=== PATIENT | female | born 1955 | race African-American/Black ===

== ENCOUNTER 2019-06-02 08:39 | Outpatient (CLI) | payer OTHER ==
[~2019-06-02] VITALS: Ht 157.5 cm; Wt 78.0 kg
[2019-06-02] MEDS ORDERED: COLE5PAC PO (09:04)
[2019-06-02] MEDS ORDERED: OXYC10TA PO (09:04)
[2019-06-02] MEDS ORDERED: SIMV40TA3 PO (09:04)
[2019-06-02] MEDS ORDERED: CARV25TA2 PO (09:04)
[2019-06-02] MEDS ORDERED: CHOL10003 PO (09:04)
[2019-06-02] MEDS ORDERED: VENL37.56 PO (09:04)
[2019-06-02] MEDS ORDERED: PANT40TA77 PO (09:04)
[2019-06-02] MEDS ORDERED: GABA300C18 PO ×2 (09:04)
[2019-06-02] MEDS ORDERED: ASPI325T8 PO (09:04)
[2019-06-02] MEDS ORDERED: CLOP75TA PO (09:04)
[2019-06-02] MEDS ORDERED: AMLO10TA8 PO (09:04)
[2019-06-02 09:35] VITALS: BP 139/68
[2019-06-02] MEDS ORDERED: LIDOCAINE WITH 8.4% SOD BICARB 3 ML DISP.SYRIN. INJ ONE (10:00)
[2019-06-02 10:12] VITALS: BP 140/73
--- NOTE | 2019-06-02 10:15 | NUR ---
Discharge Note: YUE LAZARO Discharge instructions and discharge home medications reviewed with Patient and a copy given. All questions have been answered and understanding verbalized. The following instructions and handouts were given: Skin infection. Discontinued lines and drains: No IV access, powerline removed this vist. Patient discharged to home with granddaughter via wheelchair in private vehicle.
--- NOTE | 2019-06-02 12:51 | RAD ---
Procedure: Removal of Tunneled central venous catheter 06/02/2019 12:46 PM Clinical Indication: FINISHED WITH TREATMENT Discussion: The risks and benefits of the procedure were discussed the patient and/or their novelties sales representative. Informed consent was obtained. A timeout procedure was performed. All elements of maximal sterile barrier technique including the use of a cap, mask, sterile gown, sterile gloves, large sterile sheet, appropriate hand hygiene, and 2% chlorhexidine for cutaneous antisepsis (or acceptable alternative antiseptic per current guidelines) were followed for this procedure. The patient was prepped and draped in the usual sterile fashion. 1% lidocaine was administered for local anesthesia. Using minimal blunt dissection the subcutaneous cuff was freed. The catheter was removed intact. Complete removal was confirmed by inspection, as well as spot films. Reference images were saved to the medical record. Manual pressure was held for hemostasis. Sterile dressings were applied. No immediate complications were identified. Fluoroscopy Time 0 min DAP:2 [id number] Anesthesia: Local only Impression: Removal of tunneled central venous catheter
== END 2019-06-02 10:15 | disposition home or self-care (01) ==
LOC: INTRAD 08:39
PROVIDERS: ATTEND Internal Medicine
DX: Z45.2 Encounter for adjustment and management of vascular access device (principal)
CPT/HCPCS: 36589; 77001

== ENCOUNTER → 2019-08-21 | Outpatient (CLI) | payer OTHER ==
[~2019-08-21] MED LIST: ACET325T9 PO; AMLO10TA8 PO; ASPI-630 PO; ASPI325T8 PO; CARV25TA2 PO; CHOL10003 PO; CLOP75TA PO; COLE5PAC PO; GABA300C18 PO; HYDR-3164 PO; INSU100C4 SQ; INSU100I13 SQ; OXYC10TA PO; PANT40TA77 PO; SIMV40TA18 PO; VENL37.56 PO
--- NOTE | 2019-08-21 20:03 | RAD ---
Examination: US GUID NDL PLACE/ASPI/BX, US GUID NDL PLACE/ASPI/BX, US GUID NDL PLACE/ASPI/BX, DIGITAL DIAGNOSTIC RT History: Abnormal mammogram and right breast ultrasound. Comparison/Correlation: 08/05/2019 Diagnostic mammogram and right breast ultrasound Findings: Risks and benefits of ultrasound-guided core biopsy of the right breast and right axillary lymph nodes were discussed with the patient and informed consent was obtained. Cleansing with ChloraPrep was performed. Sterile drapes placed. Sterile gel and sterile probe cover were utilized. Lateral approach was utilized. 7 cc 1 percent lidocaine was utilized. Scalpel incision was made. Introducer was placed. 12-gauge core biopsy was introduced into the 1:00 right breast mass. 4 passes were made. Samples were placed in the specimen jar. Biopsy clip marker was placed. Mild bleeding was present but well-controlled at the conclusion of the exam. Cleansing of the axilla with ChloraPrep was performed. Sterile drapes placed. Sterile gel and sterile probe cover were utilized. Lateral approach was utilized. 7 cc 1 percent lidocaine was visualized. Scalpel incision was made. Introducer was placed. 2 separate 14-gauge core biopsy needles were utilized. Multiple right axillary lymph nodes are identified. 2 of the lymph nodes with thickened cortices were selected. 3 passes of a lymph node laterally located in the axillary level was performed. 3 passes into another lymph node which is slightly more superior in location was performed. Specimens were placed in 2 separate formalin jars. A biopsy clip marker was placed in each of the 2 lymph nodes. Mammographic images of the right breast were obtained. Biopsy clip marker is identified to be slightly posterior to the mass lesion on the MLO projection by approximately 0.6 cm. The 2 biopsy clip marker is involving the axillary lymph nodes are present on the exaggerated craniocaudal lateral view. No hematoma flexion. The patient tolerated the procedure well without immediate palpitations. Impression: Successful right breast mass biopsy. Successful biopsy of 2 right axillary lymph nodes. Electronically signed by: Robby Zhao MD (08/21/2019 8:00 PM) [facility]
--- NOTE | 2019-08-25 09:07 | PATHOLOGY ---
[facility] Accession Number: [id number] . 01 Material submitted: . PART A: breast - RIGHT BREAST MASS. Modifiers: right PART B: lymph node - RIGHT AXILLARY NODE #1 LAT. Modifiers: right PART C: lymph node - RIGHT AXILLARY NODE #2 MED. Modifiers: right . 01 Clinical history: . A. Right breast mass B. Right axilla node C. Right axilla node . 02 Diagnosis: A. 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 - Size of viable invasive carcinoma: 0.5 cm, at least. - No definite in situ component identified. . B. "Right axillary lymph node #1, lateral", biopsy: - Scant fibroadipose tissue. - No definite lymphoid tissue. . C. "Right axillary lymph node #2, medial", biopsy: - Scant lymphoid tissue with no evidence of carcinoma. . (Please see comment) . (MARKM:cici; 08/24/2019) S 08/24/2019 1141 Local . 02 Comment: This case has also been reviewed by Dr. Dileep Aragon M.D., who agrees with the diagnosis. . The findings in this case were discussed with Dr. Martin on 08/24/2019. . Breast prognostic studies by image analysis will be performed on the invasive tumor present in block A1. The results will be issued in an addendum report. (MARKM:cici; 08/24/2019) . 02 Electronically signed: . Jerel Snell MD, Pathologist NPI- [id number] . 01 Gross description: . A. Received in formalin labeled "Parvin Recinos, right breast," are multiple needle cores of yellow-arreola fibrofatty tissue measuring 2.0 x 0.6 x 0.3 cm in aggregate dimensions. The tissue is submitted in its entirety in cassettes A1-A3. The cold ischemic time is 7 minutes. The total formalin fixation time is greater than 6 hours and less than 72 hours. . B. Received in formalin labeled "Parvin Recinos, right axilla 1 lat," are multiple needle cores of yellow-arreola fibrofatty tissue measuring 2.3 x 0.5 x 0.2 cm in aggregate dimensions. The tissue is submitted in its entirety in cassettes B1-B3. The cold ischemic time is 3 minutes. The total formalin fixation time is greater than 6 hours and less than 72 hours. . C. Received in formalin labeled "Parvin Recinos, right axilla 2 med," are multiple needle cores of yellow-arreola fibrofatty tissue measuring 1.4 x 0.5 x 0.2 cm in aggregate dimensions. The tissue is submitted in its entirety in cassettes C1-C3. The cold ischemic time is 5 minutes. The total formalin fixation time is greater than 6 hours and less than 72 hours. (TSD; 08/21/2019) TOB/TOB 08/21/2019 1736 Local . 02 Pathologist provided ICD-10: C50.911, N64.1 . 02 CPT . 965437, 129856, 276688 Specimen Comment: A courtesy copy of this report has been sent to Specimen Comment: [phone], , . Specimen Comment: Report sent to ,DR CORRALES / DR ANGEL Performed at: 01 [facility] [address], [place] [id number] MD Dragan Pelayo MD Phone: [phone] Performed at: [facility] [address] [place], [place] [id number] MD Chris Neff MD Phone: [phone]
== END ==
LOC: US 12:02
PROVIDERS: ATTEND Surgery
DX: N63.10 Unspecified lump in the right breast, unspecified quadrant (principal); C50.911 Malignant neoplasm of unspecified site of right female breast; R59.1 Generalized enlarged lymph nodes
CPT/HCPCS: 19083; 38505; 77065; 88305; 88361; C1713; 19081; 76942

== ENCOUNTER 2019-09-14 10:21 | Day surgery (SDC) | payer OTHER ==
[~2019-09-14] VITALS: Ht 157.5 cm; Wt 84.0 kg
[~2019-09-14 10:21] MED LIST changes: +BUPIVACAINE-EPI 0.5%-1:200000 MPF 30 ML VIAL. INJ ONE; +HEPARIN SODIUM 5,000 UNIT in IV NORMAL SALINE 500ML BAG 500 ML IRR ONE; -HYDR-3164 PO; +HYDROmorphone 2 MG/ML VIAL IV PRN; +IV RINGERS,LACTATED 1000ML 1,000 ML IV SCH; +LIDOCAINE 1% PF 2 ML VIAL. ID PRN; +MORPHINE SULFATE 2 MG/ML VIAL. IV PRN; +ONDANSETRON PF 4 MG/2 ML VIAL. IV PRN; +PROCHLORPERAZINE 10 MG/2 ML VIAL. IV PRN; -SIMV40TA18 PO; +SIMV40TA3 PO; +fentaNYL PF VIAL 100 MCG/2 ML VIAL IV PRN
[2019-09-14] MEDS ORDERED: DEXAMETHASONE SOD PHOS 4 MG/ML VIAL ONE (10:48)
[2019-09-14] MEDS ORDERED: PROPOFOL 20 ML IV ONE (10:48)
[2019-09-14] MEDS ORDERED: LIDOCAINE 2% PF 5 ML VIAL. ONE (10:48)
[2019-09-14] MEDS ORDERED: fentaNYL PF VIAL 100 MCG/2 ML VIAL ONE (10:48)
[2019-09-14] MEDS ORDERED: ONDANSETRON PF 4 MG/2 ML VIAL. ONE (10:48)
[2019-09-14] MEDS: INSULIN LISPRO 100 UNIT/ML 3ML VIAL for OP,RR ONLY. SQ PRN ×2 (11:11→14:26)
[2019-09-14] MEDS ORDERED: ePHEDrine PF IN SALINE 50 MG/10 ML SYRINGE. IV ONE (12:35)
[2019-09-14] MEDS ORDERED: SEVOFLURANE 61 TO 120 MINUTES. IH ONE (13:16)
[2019-09-14] MEDS ORDERED: PHENYLEPHRINE in 0.9% NACL PF 1 MG/10 ML SYRINGE. IV ONE (13:16)
--- NOTE | 2019-09-14 13:31 | PDOC4 ---
Operative Note Operative Note Operative Note: Preoperative Diagnosis: Breast cancer Postoperative Diagnosis: Same Procedure: Placement of Power Port-A-Cath using SonoSite guidance Surgeon: Eduardo Anesthesia: Gen. EBL: 10 mL Specimen: None Drains: None Complications: None Indication: The patient is a 64 year old female who was recently diagnosed with right breast cancer. A request was made for placement of a Port-A-Cath to allow for chemotherapy treatment. The details and risks of the procedure were discussed. The risks include bleeding, infection, vessel injury, pneumothorax, p ain, anesthetic risk, port, catheter or tubing malfunction or dysfunction, potential need for additional surgery or procedure. The patient understands and would like to proceed. Description: The patient was placed supine on the operating table and general anesthesia was performed. The bilateral neck and chest were prepped with ChloraPrep and draped in a standard surgical manner. With SonoSite ultrasound guidance the left internal jugular vein was readily identified and appeared patent. Entry was made into the vein with the skinny introducer needle under ultrasound guidance. The skinny guidewire passed readily into the central venous system. A small incision was made at the skin exit site. The skinny sheath was then placed over the guidewire. The larger guidewire was then placed within the sheath into the central venous system. Intraoperative fluoroscopy confirmed good position of the guidewire in the central venous system. The dilator and sheath were then placed over the guidewire. The catheter portion was then inserted into the central venous system and visualized using fluoroscopy. A separate left upper chest skin incision was made with a scalpel. A subcutaneous pocket was developed with cautery of sufficient size to accommodate the port. The catheter was then tunneled subcutaneously to the level of the newly formed pocket. Using fluoroscopy the catheter was positioned with the tip in the distal superior vena cava. The catheter was then cut and assembled to the port. The port was then secured to the chest wall with two 2-0 Prolene sutures. Using the Howard needle the port readily aspirated and flushed without difficulty. Fluoroscopy confirmed good positioning of the catheter with no twists or kinks. The subcutaneous tissue was approximated with 3-0 Vicryl. The skin was then closed with 4-0 Monocryl. A sterile OpSite dressing was then applied. The patient tolerated the procedure well and was sent to the recovery room in stable condition. At the end of the case all counts were correct. FATOU CORRALES MD Sep 14, 2019 13:31
--- NOTE | 2019-09-14 13:34 | DISCH ---
DISCHARGE INSTRUCTIONS Condition on Discharge Condition on Discharge: Stable Activity After Discharge Activity Instructions for Disc: Activity as tolerated Diet after Discharge Diet after Discharge: Regular Wound Incision Care Wound/Incision Care: Other, see below (keep dressing clean and dry) Follow-Up Follow up with: Oncology, call for appt FATOU CORRALES MD Sep 14, 2019 13:34
[2019-09-14] MEDS ORDERED: HYDR-3164 PO (13:38)
[2019-09-14] MEDS ORDERED: HYDROcodone/APAP 5/325MG 1 TAB TABLET PO ONE (14:45)
[2019-09-14 15:00] VITALS: BP 157/87
--- NOTE | 2019-09-15 13:31 | RAD ---
AP chest. HISTORY: Port-A-Cath placement AP view was taken of the chest. There is a left Port-A-Cath extending to the proximal superior vena cava. There is no pneumothorax. There is mild atelectasis in the left lung base. Heart is normal in size. IMPRESSION: 1. Left Port-A-Cath extends to the proximal superior vena cava. 2. Atelectasis left lung base. 3. No pneumothorax. Electronically signed by: Merlin Grijalva MD (09/15/2019 1:28 PM) [id number]
== END 2019-09-14 15:20 | disposition home or self-care (01) ==
LOC: SURG 10:21
PROVIDERS: ATTEND Surgery
DX: Z45.2 Encounter for adjustment and management of vascular access device (principal); C50.911 Malignant neoplasm of unspecified site of right female breast; K21.9 Gastro-esophageal reflux disease without esophagitis; E11.40 Type 2 diabetes mellitus with diabetic neuropathy, unspecified; I25.10 Atherosclerotic heart disease of native coronary artery without angina pectoris; E78.5 Hyperlipidemia, unspecified; F17.210 Nicotine dependence, cigarettes, uncomplicated; E66.9 Obesity, unspecified; Z68.34 Body mass index [BMI] 34.0-34.9, adult; Z98.890 Other specified postprocedural states; Z89.512 Acquired absence of left leg below knee; Z90.710 Acquired absence of both cervix and uterus; Z90.49 Acquired absence of other specified parts of digestive tract; Z79.82 Long term (current) use of aspirin; Z88.0 Allergy status to penicillin; Z95.5 Presence of coronary angioplasty implant and graft; Z79.84 Long term (current) use of oral hypoglycemic drugs
CPT/HCPCS: 36561; 71045; 77001; 82962; A7015; C1788; J0171; J1100; J1644; J1956; J2001; J2370; J2405; J2704; J3010; J3490; J7040; 36556

== ENCOUNTER 2020-03-25 09:52 | Outpatient (CLI) | payer MEDICARE, OTHER ==
[2020-03-25] VITALS (7 sets, daily range): BP systolic 137–164; BP diastolic 64–78
[~2020-03-25] VITALS: Ht 157.5 cm; Wt 93.0 kg
[~2020-03-25 09:52] MED LIST changes: -BUPIVACAINE-EPI 0.5%-1:200000 MPF 30 ML VIAL. INJ ONE; +DOXY100T PO; +FURO20TA3 PO; -HEPARIN SODIUM 5,000 UNIT in IV NORMAL SALINE 500ML BAG 500 ML IRR ONE; +HYDR-2761 PO; +HYDR-3164 PO; -HYDROmorphone 2 MG/ML VIAL IV PRN; +INSU100I11 SQ; +INSU100V31 SQ; -IV RINGERS,LACTATED 1000ML 1,000 ML IV SCH; -LIDOCAINE 1% PF 2 ML VIAL. ID PRN; -MORPHINE SULFATE 2 MG/ML VIAL. IV PRN; +ONDA8TAB17 PO; -ONDANSETRON PF 4 MG/2 ML VIAL. IV PRN; -PROCHLORPERAZINE 10 MG/2 ML VIAL. IV PRN; +SIMV40TA18 PO; -SIMV40TA3 PO; -fentaNYL PF VIAL 100 MCG/2 ML VIAL IV PRN
[2020-03-25 10:41] LABS: BASO % 1 % (0-3); EOS # 0.1 x10^3/uL (0.0-0.7); EOS % 1 % (0-3); HEMATOCRIT 29.5 % (36.0-47.0); HEMOGLOBIN 9.6 g/dL (12.0-15.5); LYMPH # 1.7 x10^3/uL (1.0-4.8); LYMPH % 24 % (24-48); MEAN CORPUSCULAR HEMOGLOBIN 28 pg (25-35); MEAN CORPUSCULAR HGB CONC 32 g/dL (31-37); MEAN CORPUSCULAR VOLUME 85 fL (79-100); MONO # 0.7 x10^3/uL (0.0-1.1); MONO % 10 % (0-9); NEUT # 4.6 x10^3/uL (1.8-7.7); NEUT % 64 % (31-73); PLATELET COUNT 188 x10^3/uL (140-400); RED BLOOD COUNT 3.46 x10^6/uL (3.50-5.40); RED CELL DISTRIBUTION WIDTH 15.9 % (11.5-14.5); WHITE BLOOD COUNT 7.2 x10^3/uL (4.0-11.0)
[2020-03-25] MEDS ORDERED: LIDOCAINE WITH 8.4% SOD BICARB 3 ML DISP.SYRIN. ONE (11:08)
[2020-03-25 11:10] LABS: PROTHROMBIN TIME PATIENT 13.1 SEC (11.7-14.0)
[2020-03-25] MEDS ORDERED: MIDAZOLAM HCL/PF 2 MG/2 ML VIAL. ONE (11:13)
[2020-03-25] MEDS ORDERED: fentaNYL PF VIAL 100 MCG/2 ML VIAL ONE (11:13)
[2020-03-25] MEDS ORDERED: fentaNYL PF VIAL 100 MCG/2 ML VIAL IV ONE (11:30)
[2020-03-25] MEDS ORDERED: MIDAZOLAM HCL/PF 2 MG/2 ML VIAL. IV ONE (11:30)
[2020-03-25] MEDS ORDERED: LIDOCAINE WITH 8.4% SOD BICARB 3 ML DISP.SYRIN. IJ ONE (11:30)
--- NOTE | 2020-03-25 13:45 | NUR ---
pt A&O x 4. denies pain, nausea or dizziness. tolerating po well. ambulated to BR w/ her walker w/o problem . pt has had a previous drain w/the bulb drain system. reviewed bulb care instructions with her. wrote out a list of instructions about drain care and keeping track of the amount of drainage daily and if the appearance of drainage changes. pt already has an appointment with Dr. Clark for of next week. out to vehicle per w/c- family there to take her home
--- NOTE | 2020-03-25 15:26 | RAD ---
Procedure: Ultrasound-guided placement of a right breast drain Clinical Indication: Adult female with recurrent right breast fluid collection following mastectomy. Sedation: Local anesthesia only Sterility: The procedure was performed in its entirety using appropriate elements of sterile technique. Consent: The procedure was explained in its entirety to the patient or the patients designated sales representative raw fibers by a member of the treatment team, including a discussion of the risks, benefits and commonly accepted alternatives to the procedure, as well as the expected consequences of no therapy whatsoever. Discussion of the risks included, but was not limited to, those that are most frequent and those that are rare but possibly severe or life-threatening, as well as the possibility of unforeseen complications. Technique and Findings: Following informed consent, the patient was prepped and draped in usual sterile fashion. Ultrasound interrogation of the right breast demonstrates a complex fluid collection in the subcutaneous space. 1% lidocaine was used to achieve local anesthesia. Under ultrasound guidance, a Seldinger needle was advanced into the fluid collection and thin yellow serous fluid was aspirated. A hardcopy ultrasound image was recorded. The needle was exchanged over wire for a 12 Sami pigtail drainage catheter. This catheter was used to aspirate 130 cc of fluid which was sent for microbiologic analysis. The drainage catheter was then sutured to the skin and placed to bulb suction. Complications: No immediate Impression: 1. Ultrasound-guided aspiration of a right breast seroma as described. Specimen was sent for microbiologic analysis.
== END 2020-03-25 13:45 | disposition home or self-care (01) ==
LOC: INTRAD 09:52
PROVIDERS: ATTEND Surgery
DX: N61.1 Abscess of the breast and nipple (principal); N64.89 Other specified disorders of breast; Z88.0 Allergy status to penicillin; Z98.890 Other specified postprocedural states
CPT/HCPCS: 10030; 36415; 85025; 85610; 87071; 87075; C1729; C1769; C1894; J3490

== ENCOUNTER → 2020-07-11 | Outpatient (CLI) | payer MEDICARE, OTHER ==
[2020-03-25 13:00] VITALS: BP 137/64
--- NOTE | 2020-07-11 17:33 | RAD ---
TOES RIGHT History: Reason: INFECTED RIGHT GREAT TOE. / Spl. Instructions: / History: Technique: 3 views right first digit. Comparison: None. Findings: First digit soft tissue swelling. Cortical irregularity and erosions of the first distal phalanx tuft. Prior amputation of the second digit to the level of the metatarsal neck. Mild first MTP DJD with hallux valgus. No fracture. Impression: 1. Right first distal tuft cortical irregularity with erosions and adjacent soft tissue swelling, concerning for osteomyelitis. MRI can further evaluate as clinically warranted. 2. Prior second digit amputation. Electronically signed by: Akin Bernabe DO (07/11/2020 5:30 PM) [facility]
== END | disposition home or self-care (01) ==
LOC: RAD 14:28
PROVIDERS: ATTEND Podiatrist
DX: M19.071 Primary osteoarthritis, right ankle and foot (principal); M20.11 Hallux valgus (acquired), right foot; M79.89 Other specified soft tissue disorders; L08.9 Local infection of the skin and subcutaneous tissue, unspecified
CPT/HCPCS: 73660

== ENCOUNTER → 2020-07-11 | Outpatient (CLI) | payer MEDICARE, OTHER ==
[2020-03-25 13:00] VITALS: BP 137/64
== END | disposition home or self-care (01) ==
LOC: SPEC 16:59
PROVIDERS: ATTEND Podiatrist
DX: L02.611 Cutaneous abscess of right foot (principal)
CPT/HCPCS: 87071; 87075; 87077; 87186